=== PATIENT | female | born 1955 | race American Indian/Alaskan Native ===

== ENCOUNTER 2021-05-02 12:11 | Outpatient (CLI) | payer MEDICARE ==
--- NOTE | 2021-05-03 13:59 | XRay Report ---
CHEST 2 VIEWS INDICATION / CLINICAL INFORMATION: COUGH. COMPARISON: Chest x-ray 10/12/2014 FINDINGS: SUPPORT DEVICES: None. HEART / MEDIASTINUM: No significant abnormality. LUNGS / PLEURA: No significant pulmonary or pleural abnormality. No pneumothorax. ADDITIONAL FINDINGS: No significant additional findings. IMPRESSION: 1. No acute findings. Signer Name: Roberto Resendiz MD Signed: 05/03/2021 1:55 PM Workstation Name: [id number]
--- NOTE | 2021-05-03 14:39 | Mammography Report ---
DIGITAL SCREENING MAMMOGRAM WITH CAD, 05/02/2021 CLINICAL INFORMATION / INDICATION: Routine screening mammography. TECHNIQUE: Digital bilateral 2D mammography was obtained in the craniocaudal and mediolateral obliqu e projections. This examination was interpreted with the benefit of Computer-Aided Detection analysis . COMPARISON: None available. FINDINGS: Breast Density: The breasts are almost entirely fatty. No dominant mass, suspicious calcifications, or architectural distortion in either breast. Vascular calcifications and scattered benign calcifications are present bilaterally. Please note that due to the patient's clinical condition and patient being unable to stand, there is suboptimal imaging of the posterior breast tissue. The best exam possible was performed but is still limited. IMPRESSION: No mammographic evidence of malignancy. However, mammographic imaging is suboptimal due t o lack of visualization of posterior breast tissue bilaterally. If clinically warranted, supplemental screening could be performed with breast ultrasound to ensure complete coverage of both breasts. Follow up recommendation: Routine yearly BI-RADS Category 2: Benign. A "normal" or negative report should not discourage follow up or biopsy of a clinically significant f inding. A written summary of these findings will be mailed to the patient. The patient will be entered into a mammography reporting system which will generate a reminder letter for the patient's next appointmen t at the appropriate interval. The [employer] recommends yearly mammograms starting at age 40 and continuing as l reece as a woman is in good health. Breast MRI is recommended for women with an approximate 20-25% or greater lifetime risk of breast cancer, including women with a strong family history of breast or ova mesha cancer or who have been treated for Hodgkin's disease. Signer Name: Kenzie Mora MD Signed: 05/03/2021 2:35 PM Workstation Name: [email or web address]
== END 2021-05-02 12:12 | disposition home or self-care (01) ==
LOC: MAMMO 12:11
PROVIDERS: ATTEND Family Medicine
DX: Z12.31 Encounter for screening mammogram for malignant neoplasm of breast (principal); R05.9 Cough, unspecified
CPT/HCPCS: 71046; 77067